=== PATIENT | male | born 1955 | race Asian ===

== ENCOUNTER 2016-09-04 14:39 | Inpatient (IN) | payer OTHER ==
[~2016-09-04] VITALS: Ht 165.1 cm; Wt 79.3 kg
[2016-09-04 15:40] LABS: ASPARTATE AMINO TRANSFERASE 8 U/L (15-37); BLOOD UREA NITROGEN 23 mg/dL (7-18)
[2016-09-04 15:53] LABS: IS PT STATUS REG ER OR PRE ER? YES
[2016-09-04] MEDS ORDERED: SODIUM CHLORIDE FLUSH 10ML SYR IVF ONE (16:00)
[2016-09-04] MEDS ORDERED: PANT40TA3 PO (16:11)
[2016-09-04] MEDS ORDERED: MONT10TA9 PO (16:11)
[2016-09-04] MEDS ORDERED: ASPI-496 PO (16:11)
[2016-09-04] MEDS ORDERED: LOSA100T6 PO (16:11)
[2016-09-04] MEDS ORDERED: METF100010 PO (16:11)
[2016-09-04] MEDS ORDERED: INSU100I11 SC (16:52)
[2016-09-04] MEDS ORDERED: OMNIPAQUE 350 MG/ML, 100ML BOTTLE ONE (16:52)
[2016-09-04] MEDS ORDERED: LIRA0.6P SC (16:52)
[2016-09-04] MEDS ORDERED: INSU200I4 SC (16:52)
[2016-09-04] MEDS ORDERED: METF-650 PO (16:52)
[2016-09-04] MEDS ORDERED: ASPIRIN 81 MG TABLET CHEW PO ONE (17:30)
[2016-09-04] MEDS ORDERED: ASPIRIN 81 MG TABLET CHEW ONE (17:48)
[2016-09-04] MEDS: SODIUM CHLORIDE 0.9% 1,000 ML IV SCH (19:21)
[2016-09-04] MEDS: methylPREDNISolone SOD SUCC 125 MG/2 ML IVPush SCH (19:29)
[2016-09-04] MEDS ORDERED: NITROGLYCERIN 0.4 MG BOTTLE (25 TABS) SL PRN (19:30)
[2016-09-04] MEDS ORDERED: methylPREDNISolone SOD SUCC 125 MG/2 ML IVPush ONE (19:30)
[2016-09-04] MEDS ORDERED: ONDANSETRON 2MG/ML, 2ML IVPush PRN (19:30)
[2016-09-04] MEDS ORDERED: morphine SULFATE 10 MG/ML, 1ML IVPush PRN (19:30)
[2016-09-04] MEDS ORDERED: POLYETHYLENE GLYCOL 17 GM PACKET PO PRN (19:30)
[2016-09-04] MEDS ORDERED: BISACODYL 10 MG SUPP PR PRN (19:30)
[2016-09-04] MEDS ORDERED: methylPREDNISolone SOD SUCC 125 MG/2 ML ONE (19:31)
[2016-09-04] MEDS ORDERED: INSULIN LISPRO 3 UNIT SC SCH (21:00)
[2016-09-04 21:44] LABS: IS PT STATUS REG ER OR PRE ER? YES
[2016-09-04 22:30] VITALS: BP 137/85
[2016-09-04] MEDS ORDERED: MAGNESIUM SULFATE PMX 2GM/50ML 50 ML IV ONE (23:00)
[2016-09-04] MEDS: BENZONATATE 100 MG CAPSULE PO SCH (23:21)
[2016-09-05] MEDS ORDERED: ALBUTEROL/IPRATROPIUM 2.5MG/0.5MG, 3 ML NPPB PRN (00:30)
[2016-09-05] MEDS ORDERED: SIMETHICONE 80 MG CHEW TAB PO PRN (00:30)
[2016-09-05 03:35] LABS: ASPARTATE AMINO TRANSFERASE 12 U/L (15-37); BLOOD UREA NITROGEN 24 mg/dL (7-18)
[2016-09-05 03:49] LABS: IS PT STATUS REG ER OR PRE ER? NO
[2016-09-05] MEDS: methylPREDNISolone SOD SUCC 125 MG/2 ML IVPush SCH ×3 (04:49→20:57)
[2016-09-05] MEDS: MONTELUKAST 10 MG TABLET PO SCH (08:17)
[2016-09-05] MEDS: LOSARTAN 50MG TABLET PO SCH (08:17)
[2016-09-05] MEDS: SENNA/DOCUSATE TABLET PO SCH (08:17)
[2016-09-05] MEDS: BENZONATATE 100 MG CAPSULE PO SCH ×3 (08:17→20:57)
[2016-09-05 08:21] VITALS: BP 132/74
[2016-09-05] MEDS: ASPIRIN 81 MG TABLET EC PO SCH (08:31)
[2016-09-05] MEDS: ACETAMINOPHEN 325 MG TABLET PO PRN ×3 (08:31→21:13)
[2016-09-05] MEDS ORDERED: INSULIN DEGLUDEC 32 UNIT SC SCH ×2 (09:00→20:47)
[2016-09-05] MEDS: INSULIN ASPART 100 UNITS/ML, PEN SQ-INSULIN SCH ×3 (09:00→20:58)
[2016-09-05] MEDS: LIRAGLUTIDE 18 UNIT SC SCH (09:00)
[2016-09-05 09:40] VITALS: BP 113/69
[2016-09-05] MEDS: SODIUM CHLORIDE 0.9% 1,000 ML IV SCH ×2 (12:00→22:00)
[2016-09-05] MEDS ORDERED: ALBU18HF INH (13:49)
[2016-09-05 16:41] VITALS: BP 119/74
[2016-09-05 18:57] VITALS: BP 136/81
[2016-09-06 02:00] VITALS: BP 123/73
[2016-09-06] MEDS: methylPREDNISolone SOD SUCC 125 MG/2 ML IVPush SCH ×2 (05:07→12:30)
[2016-09-06 05:32] LABS: BLOOD UREA NITROGEN 29 mg/dL (7-18)
[2016-09-06] MEDS: SODIUM CHLORIDE 0.9% 1,000 ML IV SCH (08:44)
[2016-09-06] MEDS: BENZONATATE 100 MG CAPSULE PO SCH (08:45)
[2016-09-06] MEDS: MONTELUKAST 10 MG TABLET PO SCH (08:45)
[2016-09-06] MEDS: INSULIN ASPART 100 UNITS/ML, PEN SQ-INSULIN SCH ×2 (08:45→12:45)
[2016-09-06] MEDS: ASPIRIN 81 MG TABLET EC PO SCH (08:45)
[2016-09-06] MEDS: SENNA/DOCUSATE TABLET PO SCH (08:46)
[2016-09-06] MEDS: LOSARTAN 50MG TABLET PO SCH (08:46)
[2016-09-06 08:47] VITALS: BP 115/82
[2016-09-06] MEDS ORDERED: METH4TAB2 PO (09:18)
[2016-09-06] MEDS ORDERED: LOSA100T6 PO (09:18)
[2016-09-06] MEDS: ACETAMINOPHEN 325 MG TABLET PO PRN (09:19)
[2016-09-06] MEDS: LIRAGLUTIDE 18 UNIT SC SCH (12:45)
== END 2016-09-06 13:50 | disposition home or self-care (01) | DRG 202 ==
LOC: ED 17:07 → EDIP 20:12 → 5SO 22:21 → DCLOUNGE 09-06 13:16
PROVIDERS: ADMIT Internal Medicine; ATTEND Internal Medicine
DX: J40 Bronchitis, not specified as acute or chronic (principal); E87.1 Hypo-osmolality and hyponatremia; S22.31XA Fracture of one rib, right side, initial encounter for closed fracture; R55 Syncope and collapse; E11.9 Type 2 diabetes mellitus without complications; I10 Essential (primary) hypertension; I49.3 Ventricular premature depolarization; S30.1XXA Contusion of abdominal wall, initial encounter; Z79.4 Long term (current) use of insulin; Z85.118 Personal history of other malignant neoplasm of bronchus and lung; Z87.891 Personal history of nicotine dependence; Z90.49 Acquired absence of other specified parts of digestive tract; Z79.899 Other long term (current) drug therapy; R00.8 Other abnormalities of heart beat; I49.8 Other specified cardiac arrhythmias
CPT/HCPCS: 36415; 70450; 71010; 71275; 74175; 80048; 80053; 80061; 82962; 83036; 83735; 83880; 84484; 85025; 85610; 93005; 93306; 94640; 96374; J1815; J7620; Q9967; J2930; J3475; J7030

== ENCOUNTER → 2019-04-14 | Outpatient (CLI) | payer MEDICARE ==
[~2019-04-14] MED LIST: ALBU18HF INH; ASPI-496 PO; INSU100I11 SC; INSU200I4 SC; LIRA0.6P SC; LOSA100T14 PO; METF-650 PO; METF100010 PO; METH4TAB2 PO; MONT10TA11 PO; PANT40TA3 PO
== END | disposition home or self-care (01) ==
LOC: CFH 10:13
PROVIDERS: ATTEND Nurse Practitioner
DX: J44.9 Chronic obstructive pulmonary disease, unspecified (principal); E11.69 Type 2 diabetes mellitus with other specified complication; I25.10 Atherosclerotic heart disease of native coronary artery without angina pectoris; Z85.118 Personal history of other malignant neoplasm of bronchus and lung
CPT/HCPCS: 71250

== ENCOUNTER → 2019-12-08 | Outpatient (CLI) | payer MEDICARE | END | disposition home or self-care (01) | LOC: CFH 07:19 | PROVIDERS: ATTEND Internal Medicine Cardiovascular Disease | DX: I06.1 Rheumatic aortic insufficiency (principal); I10 Essential (primary) hypertension | CPT/HCPCS: 93306 ==

== ENCOUNTER → 2020-05-13 | Outpatient (CLI) | payer MEDICARE ==
[~2020-05-13] MED LIST changes: -METF-650 PO; +METF-735 PO; -MONT10TA11 PO; +MONT10TA17 PO
== END | disposition home or self-care (01) ==
LOC: CFH 12:16
PROVIDERS: ATTEND Registered Nurse
DX: G47.34 Idiopathic sleep related nonobstructive alveolar hypoventilation (principal); J44.9 Chronic obstructive pulmonary disease, unspecified; Z85.118 Personal history of other malignant neoplasm of bronchus and lung; Z87.891 Personal history of nicotine dependence
CPT/HCPCS: 71250

== ENCOUNTER 2020-06-14 12:13 | Outpatient (CLI) | payer MEDICARE | END 2020-06-14 23:59 | disposition home or self-care (01) | LOC: PETCFH 12:13 | PROVIDERS: ATTEND Registered Nurse | DX: I25.10 Atherosclerotic heart disease of native coronary artery without angina pectoris (principal); R91.1 Solitary pulmonary nodule; Z85.118 Personal history of other malignant neoplasm of bronchus and lung | CPT/HCPCS: 78815; A9552 ==